=== PATIENT | male | born 1985 | race Hispanic/Latino ===

== ENCOUNTER → 2022-12-26 | Day surgery (SDC) | payer BC, OTHER ==
[~2022-12-26] MED LIST: ATORVASTATIN CA10 MG PO; LACTATED RINGER'S 1,000 ML ONE; LIDOCAINE HCL 2% LOCAL INJ 5 ML SDV VIAL INJ ONE; METFORMIN HCL500 MG PO; MULTI-VITAMIN1 EACH PO; NAPROXEN250 MG PO; OMEPRAZOLE40 MG PO; OZEMPIC0.25 MG/0. SC; PROPOFOL IV EMULSION 10 MG/ML 20 ML VIAL ONE; VITAMIN C 500500 MG PO; VITAMIN E400 UNI1 PO
[2022-12-26 07:38] VITALS: TEMP 97.1
[2022-12-26 08:10] VITALS: BP 111/63; PULSE 83; RESP 16; O2SAT 94
== END | disposition home or self-care (01) ==
LOC: OR 08:33
PROVIDERS: ATTEND Internal Medicine Gastroenterology
DX: K29.50 Unspecified chronic gastritis without bleeding (principal); Z86.010 Personal history of colon polyps; K57.30 Diverticulosis of large intestine without perforation or abscess without bleeding; K64.8 Other hemorrhoids; E11.9 Type 2 diabetes mellitus without complications; F17.290 Nicotine dependence, other tobacco product, uncomplicated; Z79.84 Long term (current) use of oral hypoglycemic drugs; Z79.899 Other long term (current) drug therapy; Z68.42 Body mass index [BMI] 45.0-49.9, adult
CPT/HCPCS: 36415; 43239; 45378; 82948; 88305; 88342; 93005; J2001; J2704; J7121; 88304; 88312